=== PATIENT | female | born 1955 | race Two or more races ===

== ENCOUNTER 2022-06-21 17:30 | Emergency (ER) | payer MEDICAID ==
[~2022-06-21] VITALS: Ht 167.6 cm; Wt 70.3 kg
--- NOTE | 2022-06-21 18:19 | NUR ---
BIBSelf, C/O BACK PAIN TO LOWER AREA
[2022-06-21] MEDS ORDERED: oxyCODONE/APAP (5/325 MG) 1 UDTAB TABLET ONE (18:49)
[2022-06-21] MEDS ORDERED: CYCLOBENZAPRINE 10 MG TABLET ONE (18:49)
[2022-06-21] MEDS ORDERED: LIDOCAINE 5% (PATCH) 1 EA PATCH TP ONE (18:49)
[2022-06-21] MEDS ORDERED: LIDOCAINE 5% (PATCH) 1 EA PATCH TP SCH (19:00)
[2022-06-21] MEDS ORDERED: CYCLOBENZAPRINE 10 MG TABLET PO ONE (19:00)
[2022-06-21] MEDS ORDERED: oxyCODONE/APAP (5/325 MG) 1 UDTAB TABLET PO ONE (19:00)
[2022-06-21] MEDS ORDERED: CYCL10TA9 PO (19:28)
[2022-06-21] MEDS ORDERED: LIDO30AD10 TP (19:28)
[2022-06-21 19:45] VITALS: BP 145/82
--- NOTE | 2022-06-21 19:47 | NUR ---
Patient discharged to home picked up by his son in stable condition. Written and verbal after care instructions given. Patient verbalizes understanding of instruction. Patient ambulatory with a steady gait.
[2022-06-21] MEDS ORDERED: OXYC-128 PO (20:14)
[2022-06-23] MEDS ORDERED: HYDR-4303 PO (14:53)
[2022-06-23] MEDS ORDERED: CARI350T PO (14:53)
== END 2022-06-21 19:47 | disposition home or self-care (01) ==
LOC: ER 17:33
DX: M54.6 Pain in thoracic spine (principal); Z88.8 Allergy status to other drugs, medicaments and biological substances

== ENCOUNTER → 2022-06-23 | Emergency (ER) | payer MEDICAID ==
[~2022-06-23] VITALS: Ht 167.6 cm; Wt 70.3 kg
[~2022-06-23] MED LIST: CARI350T PO; CYCL10TA9 PO; HYDR-4303 PO; LIDO30AD10 TP; MORPHINE SULFATE INJ 2 MG/ML DISP.SYRIN IM ONE; MORPHINE SULFATE INJ 2 MG/ML DISP.SYRIN ONE; ONDANSETRON 4 MG TAB.RAPDIS ONE; ONDANSETRON 4 MG TAB.RAPDIS SL ONE; OXYC-128 PO
--- NOTE | 2022-06-23 14:30 | NUR ---
C/O PERSISTENT BACK PAIN,SEEN HERE 2 DAYS AGO FOR THE SAME COMPLAINT
[2022-06-23 16:17] VITALS: BP 151/80
--- NOTE | 2022-06-23 16:17 | NUR ---
Patient discharged to home in stable condition. Written and verbal after care instructions given. Patient verbalizes understanding of instruction.
== END | disposition home or self-care (01) ==
LOC: ER 14:11
DX: M54.50 Low back pain, unspecified (principal); Z88.8 Allergy status to other drugs, medicaments and biological substances; Z79.899 Other long term (current) drug therapy
CPT/HCPCS: 99283; 96372; Q0162; J2270

== ENCOUNTER 2022-06-25 16:44 | Emergency (ER) | payer MEDICAID ==
[~2022-06-25] VITALS: Ht 167.6 cm; Wt 72.6 kg
[~2022-06-25 16:44] MED LIST changes: -MORPHINE SULFATE INJ 2 MG/ML DISP.SYRIN IM ONE; -MORPHINE SULFATE INJ 2 MG/ML DISP.SYRIN ONE; -ONDANSETRON 4 MG TAB.RAPDIS ONE; -ONDANSETRON 4 MG TAB.RAPDIS SL ONE
[2022-06-25 17:01] VITALS: BP 150/93
[2022-06-25] MEDS ORDERED: OXYC-128 PO (18:23)
[2022-06-25] MEDS ORDERED: HYDROMORPHONE 1 MG/1 ML DISP.SYRIN IM ONE (18:30)
[2022-06-25] MEDS ORDERED: HYDROMORPHONE 1 MG/1 ML DISP.SYRIN ONE (18:46)
--- NOTE | 2022-06-25 18:55 | NUR ---
DILAUDID 1MG GIVEN IM LEFT DELTOID, SUNSHINE WELL
--- NOTE | 2022-06-25 19:12 | NUR ---
Patient discharged to home in stable condition. Written and verbal after care instructions given. Patient verbalizes understanding of instruction.
== END 2022-06-25 19:17 | disposition home or self-care (01) ==
LOC: ER 16:53
DX: M54.50 Low back pain, unspecified (principal); M54.6 Pain in thoracic spine; Z88.8 Allergy status to other drugs, medicaments and biological substances; Z79.899 Other long term (current) drug therapy
CPT/HCPCS: 99283; 96372; J1170

== ENCOUNTER → 2022-07-04 | Emergency (ER) | payer MEDICAID ==
[~2022-07-04] VITALS: Ht 165.1 cm; Wt 72.6 kg
[2022-07-04 08:33] VITALS: BP 152/99
--- NOTE | 2022-07-04 08:45 | NUR ---
Patient discharged to home in stable condition. verbal after care instructions given by MD. Patient verbalizes understanding of instruction. Walked out prior to signing [facility]
== END | disposition home or self-care (01) ==
LOC: ER 08:23
DX: M54.9 Dorsalgia, unspecified (principal); Z76.5 Malingerer [conscious simulation]; Z88.8 Allergy status to other drugs, medicaments and biological substances; Z79.899 Other long term (current) drug therapy